=== PATIENT | male | born 1990 | race Caucasian/White ===

== ENCOUNTER 2020-08-29 09:37 | Outpatient (REF) | payer SELFPAY | END 2020-08-29 09:38 | disposition home or self-care (01) | LOC: HO.LAB 09:37 | PROVIDERS: Visit Provider Internal Medicine | DX: Z20.828 Contact with and (suspected) exposure to other viral communicable diseases (principal) | CPT/HCPCS: 87635 ==

== ENCOUNTER 2023-02-05 10:19 | Emergency (ER) | payer SELFPAY ==
[2023-02-05 10:35] VITALS: BP 152/90; PULSE 114; RESP 20; TEMP 37.4; O2SAT 98; BMI 50.9
--- NOTE | 2023-02-05 11:02 | ED.EYEPROB ---
HPI - Eye Problem General Chief complaint: Eye Problems Stated complaint: eye pain Time Seen by Provider: 02/05/23 10:52 Source: patient and RN notes reviewed Mode of arrival: ambulatory Limitations: no limitations History of Present Illness HPI Narrative: This is a 32-year-old male, with a history of asthma, who presents emergency department today with complaints of bilateral eye redness, drainage, and itchiness since yesterday. Patient reports that he woke up yesterday and worsened his right eye was itchy and red. He states he tried using [id number] eyedrops, which provided him with little relief. He woke up this morning and both of his eyes were crusted shut, with eye itchiness and redness. He reports that he otherwise is feeling okay, he denies any eye pain. He denies any foreign body sensation, denies having any object fine to his eye. Denies any trauma to his eyes. Denies any visual changes. Denies any fevers, chills, nausea, vomiting, diarrhea, chest pain, shortness of breath, or edema. Denies any ear pain or sore throat. He does not wear contact lenses. No other complaints or concerns at this time. MD chief complaint: eye pain and eye redness Onset (ago): day(s) Onset description: sudden Location: both eyes Eye Symptoms: redness, itching and discharge Mechanism: none Severity: moderate Associated symptoms: none Treatments Prior to Arrival: none Related Data Previous Rx's Medication Instructions Recorded sulfacetamide sodium 10 % eye drops 1 drp ophthalmic (eye) Q4H #15 mL 02/05/23 Allergies Allergy/AdvReac Type Severity Reaction Status Date / Time No Known Allergies Allergy Unverified 07/26/20 19:26 [No Known Allergies*] Review of Systems Review of Systems: Yes all other systems are reviewed and are negative PMFSH Past Medical History Attestation statement: The following information was validated with the patient. Social History Social History Advance Directives: No Physical Exam Vital Signs: Vital Signs: Last Vital Signs Temp 99.4 F 02/05/23 10:35 Pulse 114 H 02/05/23 10:35 Resp 20 02/05/23 10:35 BP 152/90 H 02/05/23 10:35 Pulse Ox 98 02/05/23 10:35 O2 Del Method Room Air 02/05/23 10:35 BMI result Body Mass Index 50.9 General: Awake, alert, and oriented X3. No acute distress. HEENT: Bilateral eyes with injected conjunctiva, with purulence drainage expressed from the medial canthus and bilateral eyes. Crusting noted to bilateral upper and lower eyelids. Oropharynx is normal with no erythema, edema. Uvula is midline. CVS: Normal heart rate and rhythm. Pulses normal.S1S2 regular, no mumurs, rubs or gallops. Respiratory: No respiratory distress, lungs clear to auscultation bilaterally. Skin: Warm, dry, no rashes noted to exposed skin. Normal skin color. Normal skin turgor. Extremities: Normal inspection. Neuro: Oriented X 3. No motor deficit. No sensory deficit. Medical Decision Making Medical Decision Making MDM Narrative: This is a 32-year-old male, with a past medical history of asthma, who presents emergency department for evaluation of bilateral eye redness, itchiness, and drainage since yesterday. Symptoms began in his right eye, and woke up this morning with his bilateral eyes crusted shut. Low clinical suspicion for foreign body, or traumatic corneal abrasion. On examination bilateral eye conjunctiva is injected with purulent bilateral eye drainage. Patient is otherwise feeling well without any fevers or chills. EOMI and PERRL intact. Symptoms consistent with bacterial conjunctivitis, will treat with topical antibiotic drops. Advised to return if symptoms worsen. Patient understands and agrees with plan. Plan: Visual acuity test performed. Differential Diagnosis Differential Diagnoses: The differential diagnosis associated with the presentation includes Bacterial conjunctivitis, viral conjunctivitis, corneal abrasion, iritis - less likely Discharge Plan Discharge Clinical Impression: Bacterial conjunctivitis Patient Disposition: Home, Self-Care Instructions: Conjunctivitis (ED) Additional Instructions: Please use antibiotic eyedrops as directed. Please wash your hands as this is very contagious. Follow-up with your primary care physician regarding this visit. If any new or worsening symptoms occur please return for further evaluation. Prescriptions: New sulfacetamide sodium 10 % drops 1 drp ophthalmic (eye) Q4H Qty: 15 0RF
== END 2023-02-05 12:12 | disposition home or self-care (01) ==
PROVIDERS: Emergency Provider Emergency Medicine
DX: H10.33 Unspecified acute conjunctivitis, bilateral (principal)
CPT/HCPCS: 99282; 99283